=== PATIENT | male | born 1930 | race Caucasian/White ===

== ENCOUNTER 2018-02-23 15:50 | Inpatient (IN) | payer OTHER ==
[~2018-02-23] VITALS: Ht 180.3 cm; Wt 78.1 kg
[2018-02-23 16:43] LABS: HEMATOCRIT 35.6 % (38.0-50.0); HEMOGLOBIN 11.7 G/DL (12.5-16.6); MCHC 32.9 G/DL (30.0-36.0); MCV 94.2 FL (86-99); PLATELET COUNT 239 K/uL (156-360); RBC DIS.WIDTH-CV 13.1 % (11.8-14.6); RBC DIS.WIDTH-SD 45.6 % (39-53); RED BLOOD COUNT 3.78 M/uL (4.00-5.50); WHITE BLOOD COUNT 5.6 K/uL (4.1-10.2)
[2018-02-23 16:48] LABS: INTER. NORMALIZED RATIO 1.1
[2018-02-23 16:51] LABS: PTT 27.4 SEC (25-37)
[2018-02-23 16:58] LABS: CHLORIDE 109 mEq/L (99-109); POTASSIUM 4.2 mEq/L (3.7-5.4); SODIUM 143 mEq/L (136-147)
[2018-02-23 17:00] LABS: GLUCOSE 98 mg/dL (70-99)
[2018-02-23 17:04] LABS: CREATININE 0.9 mg/dL (0.6-1.3); GFR ESTIMATE (CALCULATED) > 59 mL/min/ (58.99-99999)
[2018-02-23 17:05] LABS: UREA NITROGEN (BUN) 14 mg/dL (9-23)
[2018-02-23 20:48] LABS: TROP-I INTERPRETATION NEGATIVE; TROPONIN-I < 0.01 ng/mL (0.0-0.30)
[2018-02-23 20:50] VITALS: BP 172/85
[2018-02-23 23:28] VITALS: BP 143/80
[2018-02-24] VITALS (15 sets, daily range): BP systolic 124–179; BP diastolic 64–101
[2018-02-24 02:25] LABS: CHLORIDE 109 mEq/L (99-109); POTASSIUM 3.9 mEq/L (3.7-5.4); SODIUM 143 mEq/L (136-147)
[2018-02-24 02:27] LABS: GLUCOSE 145 mg/dL (70-99)
[2018-02-24 02:31] LABS: CREATININE 0.8 mg/dL (0.6-1.3); GFR ESTIMATE (CALCULATED) > 59 mL/min/ (58.99-99999)
[2018-02-24 02:32] LABS: UREA NITROGEN (BUN) 15 mg/dL (9-23)
[2018-02-24 02:40] LABS: TROP-I INTERPRETATION NEGATIVE; TROPONIN-I < 0.01 ng/mL (0.0-0.30)
[2018-02-24 09:14] LABS: TROP-I INTERPRETATION NEGATIVE; TROPONIN-I < 0.01 ng/mL (0.0-0.30)
[2018-02-24 12:00] LABS: HEMATOCRIT 39.7 % (38.0-50.0); MCHC 32.7 G/DL (30.0-36.0); MCV 94.5 FL (86-99); PLATELET COUNT 242 K/uL (156-360); RBC DIS.WIDTH-CV 12.9 % (11.8-14.6); RBC DIS.WIDTH-SD 44.4 % (39-53); WHITE BLOOD COUNT 6.1 K/uL (4.1-10.2)
[2018-02-24 12:47] LABS: HEMOGLOBIN A1c (GLYCOHEMOGLOB) 6.2 % (Below 5.7)
[2018-02-25] VITALS (14 sets, daily range): BP systolic 128–164; BP diastolic 73–96
[2018-02-25 06:44] LABS: BASOPHIL (%) 0.3 % (0-1); EOSINOPHIL (%) 0.3 % (0-5); HEMATOCRIT 39.6 % (38.0-50.0); HEMOGLOBIN 12.7 G/DL (12.5-16.6); IMMATURE GRANULOCYTE (%) 0.4 % (0.0-0.7); LYMPHOCYTE (%) 20.3 % (15-42); LYMPHOCYTE COUNT 1.6 K/uL (1.0-2.8); MCH 30.2 PG (29.0-34.0); MCHC 32.1 G/DL (30.0-36.0); MCV 94.1 FL (86-99); MONOCYTE (%) 7.8 % (3-12); MONOCYTE COUNT 0.6 K/uL (0-0.8); NEUTROPHIL (%) 70.9 % (45-76); NEUTROPHIL COUNT 5.7 K/uL (1.8-6.4); PLATELET COUNT 237 K/uL (156-360); RBC DIS.WIDTH-CV 13.1 % (11.8-14.6); RED BLOOD COUNT 4.21 M/uL (4.00-5.50)
[2018-02-25 07:06] LABS: ALBUMIN 3.5 G/DL (3.2-4.8); ALKALINE PHOSPHATASE 48 IU/L (3-129); ALT (GPT) 18 IU/L (3-49); AST (GOT) 18 IU/L (2-34); CHLORIDE 105 MEQ/L (99-109); CREATININE 0.9 MG/DL (0.6-1.3); GFR ESTIMATE (CALCULATED) > 59 mL/min/ (58.99-99999); GLUCOSE 146 mg/dL (70-99); MAGNESIUM 1.8 mg/dl (1.3-2.7); POTASSIUM 4.5 MEQ/L (3.7-5.4); SODIUM 143 MEQ/L (136-147); TOTAL BILIRUBIN 0.5 MG/DL (0.0-1.0); UREA NITROGEN (BUN) 11 mg/dL (9-23)
[2018-02-25 07:20] LABS: TOTAL PROTEIN 5.5 G/DL (6.4-8.3)
[2018-02-26 04:02] VITALS: BP 147/70
[2018-02-26 07:59] VITALS: BP 171/99
[2018-02-26 11:07] VITALS: BP 143/86
[2018-02-26] MEDS ORDERED: DEPAKOTE ER250 MG PO (11:15)
[2018-02-26] MEDS ORDERED: HYDROCODON-ACE1 EAC7 PO (11:15)
[2018-02-26] MEDS ORDERED: LOPRESSOR25 MG PO (13:30)
[2018-02-26] MEDS ORDERED: NEURONTIN300 MG PO (14:30)
[2018-02-26] MEDS ORDERED: BENAZEPRIL HCL20 MG PO (14:34)
[2018-02-26] MEDS ORDERED: TOPROL XL25 MG PO (14:35)
[2018-02-26] MEDS ORDERED: INDERAL20 MG PO (14:39)
[2018-02-26] MEDS ORDERED: CLONAZEPAM1 MG PO (14:40)
[2018-02-26] MEDS ORDERED: TRAZODONE HCL50 MG PO (14:41)
[2018-02-26] MEDS ORDERED: LIPITOR20 MG PO (14:43)
[2018-02-26] MEDS ORDERED: GLUCOPHAGE500 MG PO ×2 (14:46→14:47)
[2018-02-26] MEDS ORDERED: MYSOLINE50 MG PO (14:47)
[2018-02-26] MEDS ORDERED: TRAMADOL HCL50 MG PO (14:49)
[2018-02-26] MEDS ORDERED: MYRBETRIQ50 MG PO (14:49)
[2018-02-26] MEDS ORDERED: MIRALAX17 GM PO (14:51)
[2018-02-26] MEDS ORDERED: ASPIR 8181 M1 PO (14:52)
[2018-02-26] MEDS ORDERED: PRESERVISION T1 EACH PO (14:52)
[2018-02-26] MEDS ORDERED: COLACE100 MG PO (14:53)
[2018-02-26 15:09] VITALS: BP 144/64
== END 2018-02-26 17:28 | disposition home or self-care (01) | DRG 26 ==
LOC: EME 15:50 → ENRESERV 18:13 → 4WEST 18:19 → EDOF 18:19 → EME 18:19 → 4EAST 18:19 → CANRESERV 18:31 → 4EAST 18:37 → ENRESERV 19:38 → 4EAST 20:47 → ENRESERV 02-24 16:22 → 4WEST 02-24 17:06 → ENRESERV 02-25 12:40 → 3EAST 02-25 14:36
PROVIDERS: Emergency Medicine; Hospitalist; Neurological Surgery
PROC: 009430Z Drainage of Intracranial Subdural Space with Drainage Device, Percutaneous Approach (ICD-10-PCS; principal; 2018-02-24)
DX: S06.5X0A Traumatic subdural hemorrhage without loss of consciousness, initial encounter (principal); E78.5 Hyperlipidemia, unspecified; S22.31XA Fracture of one rib, right side, initial encounter for closed fracture; I10 Essential (primary) hypertension; G93.89 Other specified disorders of brain; E11.9 Type 2 diabetes mellitus without complications; Z87.891 Personal history of nicotine dependence; W18.2XXA Fall in (into) shower or empty bathtub, initial encounter; Z79.84 Long term (current) use of oral hypoglycemic drugs; Y93.E1 Activity, personal bathing and showering; Y92.091 Bathroom in other non-institutional residence as the place of occurrence of the external cause
CPT/HCPCS: 70450; 71111; 80048; 80053; 81003; 82948; 83036; 83735; 84484; 85025; 85027; 85610; 85730; 86850; 86900; 86901; 87641; 93005; 93306; 94799; 99281; 99285; C1713; C1729; J0360; J0690; J1815; J2710; J3010; J3480; J7030; J7643; S0028